=== PATIENT | male | born 1985 | race Caucasian/White ===

== ENCOUNTER 2022-03-09 16:44 | Emergency (ER) | payer OTHER, SELFPAY ==
--- NOTE | ~2022-03-09 | XR_ITS ---
XR finger 4th RT min 2V DATE: 03/09/2022 17:02 INDICATION: Dorsal proximal interphalangeal joint pain TECHNIQUE: 4 views COMPARISON: None FINDINGS: There is dorsal soft tissue swelling at the proximal interphalangeal joint. No fracture, dislocation, periosteal reaction or bone destruction. No radiopaque soft tissue foreign body or subcutaneous emphysema. IMPRESSION: Dorsal soft tissue swelling at proximal interphalangeal joint. No bony abnormality Reviewed, dictated and finalized at location A. IMPRESSION: Dorsal soft tissue swelling at proximal interphalangeal joint. No b jeromy abnormality
[2022-03-09 16:54] VITALS: BP 174/105; PULSE 78; RESP 16; TEMP 36.4; O2SAT 98
[2022-03-09 16:55] VITALS: BP 174/105; PULSE 78; RESP 16; TEMP 36.4; O2SAT 98
--- NOTE | 2022-03-09 17:24 | ED.UPPEXIN ---
HPI - Extremity Injury (Upper) General Chief Complaint: Extremity Injury, Upper Stated Complaint: Finger Injury Time Seen by Provider: 03/09/22 17:25 Source: patient Mode of arrival: ambulatory Limitations: no limitations History of Present Illness HPI narrative: 36-year-old male presenting for complaint of right ring finger pain and swelling and bruising for 3 days. Endorses injury during . He states he struck the finger on his opponents knee causing the 2nd half of the finger to dislocate towards the little finger. States when he saw the finger deformity, he felt the pain and immediately pushed the finger into alignment. Denies numbness, tingling or weakness. Not taking anything for pain. Related Data Home Medications Medication Instructions Recorded Confirmed No Home Medications 03/09/22 03/09/22 Allergies Allergy/AdvReac Type Severity Reaction Status Date / Time No Known Allergies Allergy Unverified 03/09/22 16:55 Review of Systems Review of Systems: CONSTITUTIONAL: Denies body aches, fever, chills RESPIRATORY: Denies cough or dyspnea. SKIN: Denies rash, itching, or wounds. MUSCULOSKELETAL: per HPI NEUROLOGIC: Denies headache, numbness, tingling, or weakness. PSYCH: Denies depression or anxiety. All systems reviewed & are unremarkable except as noted in HPI and below PMFSH Past Medical History Medical History Herpes simplex Social History Social History Smoking status: Never smoker Second hand tobacco smoke exposure: No Alcohol intake: current Comments At time of signature, I have reviewed and agree with nursing past medical, surgical, social and family history unless otherwise noted. Please see nursing chart for further information. There is no relevant family history pertinent to the presenting complaint Exam Narrative: GENERAL: Well-appearing, well-nourished, and in no acute distress. CHEST: Speaks in full sentences. No respiratory distress. HEART: Regular rate and rhythm. Normal and equal peripheral pulses. EXTREMITIES: Right 4th finger with moderate swelling and bruising at PIP to distal phalanx. no point tenderness. No apparent deformity. Right hand has normal strength and sensation, normal range of motion. pulse palpable and equal bilaterally, skin warm, dry, pink. Capillary refill less than 3 seconds. SKIN: Warm, dry, no rash. PSYCH: Normal mood and affect Course Course Emergency Course: Patient is aware of diagnosis, understands and agrees to treatment plan. Anticipatory guidance given. Patient agrees to follow-up as directed and is aware of reasons to seek care at the emergency department. Portions of this record may have been created with voice recognition software Level of Care: Express Care Visit Vital Signs Vital signs: Vital Signs Temperature 97.5 F L 03/09/22 16:54 Pulse Rate 78 03/09/22 16:54 Respiratory Rate 16 03/09/22 16:54 Blood Pressure 174/105 H 03/09/22 16:54 Pulse Oximetry 98 03/09/22 16:54 Oxygen Delivery Room Air 03/09/22 16:54 Temperature 97.5 F L 03/09/22 16:55 Pulse Rate 78 03/09/22 16:55 Respiratory Rate 16 03/09/22 16:55 Blood Pressure 174/105 H 03/09/22 16:55 Pulse Oximetry 98 03/09/22 16:55 Oxygen Delivery Room Air 03/09/22 16:55 Reviewed MDM - Extremity Injury (Upper) MDM Narrative Medical decision making narrative: results of x-ray reviewed with pt. declined a finger splint. Advised supportive measures and signs/symptoms to go to the ER. Pt is appropriate for outpt treatment and f/u. Differential Diagnosis Differential diagnosis: Likely finger sprain and dislocation of finger Imaging Data Radiologist's impression: Patient: Wilfrid Grewal : 1985 MR#: [id number] Age/Sex: 36 / M Acct:[id number] Loc: [facility]? ? ADM Date: 03/09/22Attending Dr: Ordering Phys
--- NOTE | 2022-03-09 17:34 | PC.NURSE ---
PT DECLINED ICE FOR COMFORT
== END 2022-03-09 17:34 | disposition home or self-care (01) ==
PROVIDERS: Emergency Provider Nurse Practitioner Family
DX: M79.644 Pain in right finger(s) (principal)
CPT/HCPCS: 73140; 99213; G0463

== ENCOUNTER 2022-04-11 12:48 | Emergency (ER) | payer OTHER, SELFPAY ==
[2022-04-11 12:50] VITALS: BP 148/85; PULSE 96; RESP 20; TEMP 36.2; O2SAT 99
--- NOTE | 2022-04-11 13:24 | ED.URI ---
HPI - URI/Sore Throat General Chief Complaint: Upper Respiratory Infection Stated Complaint: congestion cough Time Seen by Provider: 04/11/22 13:24 History of Present Illness HPI Narrative: Patient presents with a 3 day history of a cough. Patient denies any shortness of breath no chest pain just a cough productive at times. Patient has taken Mucinex [id number] for symptoms with minimal relief. Related Data Allergies Allergy/AdvReac Type Severity Reaction Status Date / Time No Known Allergies Allergy Unverified 03/09/22 16:55 Review of Systems Review of Systems: CONSTITUTIONAL: Denies chills, or sweats. Reports fever and generalized body aches EYES: Denies visual changes, redness, or discharge. ENT: Denies otalgia. Reports nasal congestion runny nose and sore throat CARDIOVASCULAR: Denies chest pain, palpitations, or edema. RESPIRATORY: Denies dyspnea. Reports occasional cough GASTROINTESTINAL: Denies abdominal pain, nausea, vomiting, or diarrhea. GENITOURINARY: Denies dysuria or hematuria. SKIN: Denies rash or itching. MUSCULOSKELETAL: Denies back pain, joint pain, or myalgia. Reports generalized body aches NEUROLOGIC: Denies headache, numbness, or weakness. PSYCHIATRIC: Denies anxiety or depression. [facility] Past Medical History Medical History (Updated 04/11/22 @ 13:30 by LEAH Jameson) Herpes simplex Social History Social History Smoking status: Never smoker Second hand tobacco smoke exposure: No Alcohol intake: current Comments At time of signature, agree with nursing past medical, surgical, social and family history. There is no relevant family history pertinent to the presenting complaint Exam Narrative: The patient is a well-developed, well-nourished in no acute distress. SKIN: Skin is warm and dry without erythema, swelling or exudate. There is good turgor. No tenting. HEAD: Atraumatic. Normocephalic. No temporal or scalp tenderness. EYES: Moist and bright. Sclera and conjunctivae normal. No discharge. PERRLA. Extraocular motions intact. Gross visual acuity intact. EARS: Pinna is normal shape and contour. Clear external auditory canals. TM pearly landrum with good cone of light, no erythema or suppuration. Bilateral cerumen noted no gross hearing deficit. NOSE: pink, moist mucosa with good air movement. Clear rhinorrhea without nasal flaring. Septum midline. Mouth: moist mucous membranes. THROAT; mild erythema noted to posterior oropharynx with moderate postnasal drainage. Without exudate or ulceration.. Uvula midline. Normal movement of soft palate. NECK: Supple and nontender with full range of motion without discomfort. No meningeal signs. LUNGS: Equal and bilateral breath sounds without wheezes, rales or rhonchi. CHEST: The chest wall is without retractions or use of accessory muscles. HEART: Has a regular rate and rhythm without murmur, gallops, click or rub. ABDOMEN: Soft, nontender with positive active bowel sounds. No rebound tenderness. EXTREMITIES: Without cyanosis, clubbing or edema. Equal 2+ distal pulses and 2 second capillary refill noted. NEUROLOGIC: alert, active, . The patient moves all extremities with normal muscle strength. Normal muscle tone is noted. Normal coordination is noted. NO focal neurological findings noted. Course Course Level of Care: Express Care Visit Vital Signs Vital signs: Vital Signs Temperature 36.2 C L 04/11/22 12:50 Pulse Rate 96 04/11/22 12:50 Respiratory Rate 20 04/11/22 12:50 Blood Pressure 148/85 H 04/11/22 12:50 Pulse Oximetry 99 04/11/22 12:50 Oxygen Delivery Room Air 04/11/22 12:50 Temperature 36.2 C L 04/11/22 12:50 Pulse Rate 96 04/11/22 12:50 Respiratory Rate 20 04/11/22 12:50 Blood Pressure 148/85 H 04/11/22 12:50 Pulse Oximetry 99 04/11/22 12:50 Oxygen Delivery Room Air 04/11/22 12:50 Please AFSHAN schedule a followup visit with your pers
== END 2022-04-11 13:37 | disposition home or self-care (01) ==
PROVIDERS: Emergency Provider Nurse Practitioner Family
DX: J06.9 Acute upper respiratory infection, unspecified (principal); J40 Bronchitis, not specified as acute or chronic
CPT/HCPCS: 99213; G0463

== ENCOUNTER 2024-02-26 14:34 | Outpatient (CLI) | payer OTHER, SELFPAY ==
[2024-02-28 13:32] LABS: NIL 0.01 IU/mL; Quantiferon TB Plus, 1T NEGATIVE (NEGATIVE); TB1-NIL 0.01 IU/mL
== END 2024-02-26 14:35 | disposition home or self-care (01) ==
LOC: ANHBWCLAB 14:35
PROVIDERS: PCP Nurse Practitioner Adult Health; Visit Provider Nurse Practitioner Adult Health
DX: Z13.9 Encounter for screening, unspecified (principal)
CPT/HCPCS: 36415; 86480